=== PATIENT | male | born 1965 | race Caucasian/White ===

== ENCOUNTER → 2022-12-06 11:47 | Outpatient (BNVA) | payer OTHER, SELFPAY | PROVIDERS: PCP Internal Medicine; Visit Provider Physician Assistant | DX: Z13.89 Encounter for screening for other disorder (principal) ==

== ENCOUNTER 2023-01-24 09:15 | Outpatient (REF) | payer OTHER, SELFPAY ==
--- NOTE | ~2023-01-24 | FL_ITS ---
EXAMINATION: FL BARIUM SWALLOW CLINICAL INFORMATION: Dysphagia. Previous history of surgery for likely achalasia. COMPARISON: None available. TECHNIQUE: Barium swallow examination is performed using fluoroscopic evaluation in addition to multiple fluoroscopic spot views. The patient is imaged both upright and prone and using both thick and thin sulfate along with effervescent granules. Fluoroscopy time: 3.7 minutes DAP: 43.370 Gycm2 Images: 74 FINDINGS: Following oral administration of thick barium and barium-coated turkey in upright view, there is normal propagation of bolus from the oral cavity through the pharynx into the upper esophagus. There is slow propagation of bolus from the mid to distal esophagus and through the GE junction. There is inconsistent opening of the gastroesophageal junction resulting in moderate distention of mid and distal esophagus in spite of upright view. On placing patient prone lying and oral administration of thin barium, there is good distention of the esophagus with irregular-appearing distal esophageal mucosal pattern with inconsistent opening of the GE junction. This results in secondary and tertiary peristalsis. A small hiatal hernia is suspected. There are surgical joe at the GE junction from previous intervention. FL/FL barium swallow IMPRESSION: Diminished peristalsis in the mid and distal esophagus with visualization of secondary and tertiary peristalsis. This results in [id number] distention of mid esophagus. There is inconsistent opening of the GE junction in spite of gravity. Suspect neuromuscular discoordination. There are postsurgical changes at the GE junction.
== END 2023-01-24 09:16 | disposition home or self-care (01) ==
LOC: HO.XRAY 09:15
PROVIDERS: PCP Internal Medicine; Visit Provider Physician Assistant
DX: R13.10 Dysphagia, unspecified (principal); K22.0 Achalasia of cardia
CPT/HCPCS: 74220

== ENCOUNTER 2023-04-17 10:56 | Emergency (ER) | payer OTHER, SELFPAY ==
--- NOTE | 2023-04-17 11:10 | ED.CHESTPAIN ---
HPI - Chest Pain General Chief Complaint: Chest Pain Stated Complaint: Fatigue Headache Heat Exertion Time Seen by Provider: 04/17/23 11:07 Source: patient Mode of arrival: ambulatory Limitations: no limitations History of Present Illness HPI narrative: 2 days of back pain, weakness, diaphoresis, nausea. Denies chest pain, denies shortness of breath. Patient has HTN, non smoker, denies chest pain with exertion. Onset (ago): day(s) Associated symptoms: nausea and diaphoresis Risk Factors Coronary artery disease risk factors: hyperlipidemia and hypertension Related Data Home Medications Medication Instructions Recorded Confirmed amlodipine 5 mg tablet 5 mg PO DAILY 12/06/22 12/06/22 atenolol 50 mg tablet 50 mg PO DAILY 12/06/22 12/06/22 hydrochlorothiazide 25 mg tablet 25 mg PO DAILY 12/06/22 12/06/22 Previous Rx's Medication Instructions Recorded sucralfate 1 gram tablet 1 g PO QIDACHS 21 days #90 tabs 12/06/22 Allergies Allergy/AdvReac Type Severity Reaction Status Date / Time No Known Allergies Allergy Verified 04/17/23 11:19 Review of Systems Review of Systems: Yes all other systems are reviewed and are negative Neurologic: Denies Sensory deficit (Neuro) [facility] Past Medical History Medical History Esophagus disorder Family History Family History Mother HTN (hypertension) Social History Social History Household Members: Significant Other Alcohol intake: never Patient Tobacco Use Status: Never used Tobacco Advance Directives: No Advance Directives Information Provided: Yes Current occupational status: employed Physical Exam Vital Signs: Vital Signs: Last Vital Signs Temp 98.1 F 04/17/23 11:21 Pulse 61 04/17/23 11:25 Resp 18 04/17/23 11:21 BP 115/84 04/17/23 11:25 Pulse Ox 97 04/17/23 11:21 O2 Del Method Room Air 04/17/23 11:21 BMI result Body Mass Index 29.6 Const: Other: Patient looking pale and weak Nutritional Appearance: average body habitus Orientation/consciousness: oriented to person and patient oriented x3 Limitations: no limitations HEENT: Head: Yes normal to inspection Ears: external ears normal General nose exam: Normal external nose present Mouth: Normal oral and palatal mucosa present and oropharynx normal Throat: Yes posterior oropharynx normal Eyes: General: appearance normal, both eyes and all related structures Neck: Other: supple Neck: Yes normal visual inspection Chest: Chest palpation & inspection: normal inspection of the chest Resp: Auscultation: clear to auscultation bilaterally Cardio: Jugular venous distension: no JVD Rate: regular rate Rhythm: regular rhythm Heart sounds: S1 normal heart sound present and S2 normal heart sound present GI: Inspection: Yes normal to inspection Palpation (GI): Soft to palpation, nontender and No hepatosplenomegaly present Auscultation: normal bowel sounds : General: Yes no CVA tenderness Back/Spine/Pelvis: Back: no CVA tenderness Skin: General skin exam: no rashes or lesions noted Neuro: General: oriented to person and patient oriented x3 Cranial nerves: Yes CN's II-XII intact bilaterally Motor exam (neuro): 5/5 motor strength present throughout Sensory Exam: No Sensory deficit (Neuro) Extrem: General: Yes normal to inspection Psych: Appearance: grossly normal Course Reevaluation(s) Reevaluation #1: Patient accepted to [facility] transfer Time: 12:17 Reevaluation #2: I spent 40 minutes of critical care, with interventions, assessments, speaking to patient, consultants, and family. Time: 12:17 Medications Administered Discontinued Medications Generic Name Dose Route Start Last Admin Trade Name Shashiq PRN Reason Stop Dose Admin Aspirin 325 mg 04/17/23 11:13 04/17/23 11:23 Aspirin Enteric Coated 325 Mg Tablet. PO 04/17/23 11:14 325 mg ONCE ONE Administration Heparin Sodium (Porcine) 5,000 unit 04/17/23 11:24 04/17/23 11:28 Heparin Sodium,Porcine 5,000 Unit/Ml Vial IVPUSH 04/17/23 11:25 5,000 unit ONCE ONE Administration Nitroglycerin 1 inch 04/17/23 11:14 04/17/23 11:25 Nitroglycerin 2 % Oint 1 Gm Packet TRANSDERMA 04/17/23 11:15 1 inch ONCE ONE Administration Ticagrelor 180 mg 04/17/23 11:24 04/17/23 11:29 Ticagrelor 90 Mg Tablet PO 04/17/23 11:25 180 mg ONCE ONE Administration Medical Decision Making Differential Diagnosis Differential Diagnoses: The differential diagnosis associated with the presentation includes (STEMI, CAD, electrolyte abnormality) Admission/Observation Consideration of admission/observation: Escalation of care including admission/observation considered (Upon arrival this patient with abnormal EKG, HTN, and high cholesterol was considered for admission) Consult Healthcare Provider Management of the patient was discussed with: Adjunct Sociology Professor (Cardiology and invasive cardiology) Lab Data MDM Lab Attestation statement: I reviewed the patient's lab results. (very elevated troponin was noted) 04/17/23 11:15 04/17/23 11:16 Labs: Lab Results 04/17/23 04/17/23 04/17/23 Range/Units 11:15 11:15 11:16 WBC 16.0 H (4.8-10.8) X10*3/uL RBC 4.89 (4.60-5.80) X10*6/uL Hgb 14.7 (14.0-18.0) g/dl Hct 41.5 L (42.0-52.0) % MCV 84.9 (80.0-98.0) fL MCH 30.1 (27.0-33.0) pg MCHC 35.4 (31.0-36.0) g/dl RDW 12.8 (11.0-16.0) % Plt Count 173 (160-400) X10*3/uL MPV 10.3 (9.4-12.4) fL Immature Gran % (Auto) 0.6 H (0.0-0.4) % Neut % (Auto) 85.1 H (45-73) % Lymph % (Auto) 6.8 L (20-40) % Sully % (Auto) 7.2 (2-11) % Eos % (Auto) 0.1 (0-4) % Baso % (Auto) 0.2 (0-2) % Lymph # (Auto) 1.1 L (1.2-4.9) X10*3/uL Sully # (Auto) 1.2 (0.1-1.2) X10*3/uL Eos # (Auto) 0.0 (0.0-0.4) X10*3/uL Baso # (Auto) 0.0 (0.0-0.2) X10*3/uL Abs Immat Gran (auto) 0.09 H (0.00-0.03) X10*3/uL Absolute Neuts (auto) 13.6 H (2.0-8.3) x10*3/uL Absolute Nucleated RBC 0.000 (0.0-0.012) X10*3/uL Nucleated RBC % (auto) 0.0 (0.0-0.2) /100WBC Carbon Dioxide 28 (22-29) mmol/L BUN 18 H (9-16) mg/dL Creatinine 1.15 (0.5-1.4) mg/dL Estim Creat Clear Calc 85.3 Estimated GFR > 60 Random Glucose 129 H (60-115) mg/dL Calcium 9.9 D (8.4-10.2) mg/dL Total Bilirubin 2.7 H (0.0-1.0) mg/dL AST 237 H (5-37) U/L ALT 63 H (0-40) U/L Alkaline Phosphatase 72 (39-117) U/L Troponin I High Sens > 73830.0 H* (<3.5-35.0) ng/L Total Protein 7.2 (6.5-8.0) g/dL Albumin 4.1 (3.5-5.0) g/dL Independent Interpretation I performed an independent interpretation of an: EKG (sinus 60, elevated st inferiorly, significant ST depression anterior with twave inversion) Independent Historian Clinical information obtained from an independent historian. History obtained from or confirmed by: Spouse Chronic Conditions Patient?s care impacted by: Hypertension and Other (high cholesterol) Discharge Plan Discharge Clinical Impression: ST elevation myocardial infarction (STEMI) Patient Disposition: Xfer Acute [facility] Transfer Details: needs brush clearing laborer Prescriptions: No Action amlodipine 5 mg tablet 5 mg PO DAILY atenolol 50 mg tablet 50 mg PO DAILY hydrochlorothiazide 25 mg tablet 25 mg PO DAILY sucralfate 1 gram tablet 1 g PO QIDACHS 21 Days Qty: 90 0RF
[2023-04-17 11:21] VITALS: BP 115/84; PULSE 61; RESP 18; TEMP 36.7; O2SAT 97; BMI 29.6
[2023-04-17 11:24] LABS: MANUAL DIFF FLAG NO
[2023-04-17 11:25] VITALS: BP 115/84; PULSE 61
[2023-04-17 11:30] LABS: Basophils Percent Auto 0.2 % (0-2); Eosinophils Percent Auto 0.1 % (0-4); Hematocrit 41.5 % (42.0-52.0); Hemoglobin 14.7 g/dl (14.0-18.0); Imm Gran Abs Auto 0.09 X10*3/uL (0.00-0.03); Imm Gran Pct Auto 0.6 % (0.0-0.4); Lymphocytes Absolute Auto 1.1 X10*3/uL (1.2-4.9); Lymphocytes Percent Auto 6.8 % (20-40); Mean Corpuscular HGB Conc 35.4 g/dl (31.0-36.0); Mean Corpuscular Hemoglobin 30.1 pg (27.0-33.0); Mean Corpuscular Volume 84.9 fL (80.0-98.0); Mean Platelet Volume 10.3 fL (9.4-12.4); Monocytes Absolute Auto 1.2 X10*3/uL (0.1-1.2); Monocytes Percent Auto 7.2 % (2-11); Neutrophils Absolute Auto 13.6 x10*3/uL (2.0-8.3); Neutrophils Percent Auto 85.1 % (45-73); Platelet Count 173 X10*3/uL (160-400); Red Blood Count 4.89 X10*6/uL (4.60-5.80); Red Cell Distribution Width 12.8 % (11.0-16.0)
--- NOTE | 2023-04-17 11:34 | PC.NURSE ---
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 EKG concerning for STEMI, MD at bedside, labs obtained, IV x2 placed, medication given per order.
--- NOTE | 2023-04-17 12:28 | MHC.EDTECH ---
DARRICK LEAVES TO [facility] WITH THIS PT @ THIS TIME
--- NOTE | 2023-04-17 12:38 | PC.NURSE ---
back time charting, pt complaint of on and off heart burn but reporting it is starting to get better at this time, advised pt to be NPO for now. Transfer report given to RN at [facility]. 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
== END 2023-04-17 12:40 | disposition short-term general hospital (02) ==
PROVIDERS: Emergency Provider Emergency Medicine; PCP Internal Medicine
DX: I21.3 ST elevation (STEMI) myocardial infarction of unspecified site (principal); I10 Essential (primary) hypertension; E78.5 Hyperlipidemia, unspecified; Z79.899 Other long term (current) drug therapy; Z20.822 Contact with and (suspected) exposure to COVID-19
CPT/HCPCS: 36415; 80053; 84484; 85025; 87635; 93005; 96374; 99285; J1643